=== PATIENT | male | born 1995 | race Hispanic/Latino ===

== ENCOUNTER 2018-08-22 19:48 | Emergency (ER) | payer OTHER ==
[~2018-08-22] VITALS: Ht 180.3 cm; Wt 127.0 kg
== END 2018-08-22 20:57 | disposition home or self-care (01) ==
LOC: ER 19:48
DX: S01.111A Laceration without foreign body of right eyelid and periocular area, initial encounter (principal); W22.03XA Walked into furniture, initial encounter; Y92.008 Other place in unspecified non-institutional (private) residence as the place of occurrence of the external cause
CPT/HCPCS: 99283